=== PATIENT | female | born 1975 | race Caucasian/White ===

== ENCOUNTER 2023-11-12 05:21 | Outpatient (CLI) | payer BC, SELFPAY ==
[2023-11-12 12:25] LABS: Abs Immature Grans 0.02 10^3/uL (0.0-0.06); Absolute Basophil Count 0.07 10^3/uL (0.0-0.2); Absolute Eosinophil Count 0.09 10^3/uL (0.0-0.7); Absolute Lymphocyte Count 2.39 10^3/uL (1.2-3.4); Absolute Neutrophil Count 2.38 10^3/uL (1.2-6.7); Basophils % 1.3; Eosinophils % 1.7; HCT 38.8 % (36.0-46.0); HGB 13.2 g/dL (11.2-15.7); Immature Grans % 0.4; Lymphocytes % 44.7; MCV 97 fL (80-95); MPV 9.4 fL (8.0-11.0); Monocytes % 7.5; Neutrophils % 44.4; Platelet Count 246 10^3/uL (130-400); RDW 12.2 % (11.7-14.6); RDW-SD 43.5 fL; WBC 5.35 10^3/uL (4.4-10.8)
[2023-11-12 12:34] LABS: ESR < 1 mm/hr (0-20)
[2023-11-12 12:40] LABS: ALT 28 U/L (14-59); AST 18 U/L (15-37); Albumin 3.9 g/dL (3.4-5.0); Alkaline Phosphatase 38 U/L (46-116); Anion Gap 6.2 mmol/L (3-11); BUN 11 mg/dL (7-18); Bilirubin, Total 0.5 mg/dL (0.2-1.0); CO2 29.8 mmol/L (21.0-32.0); CREATININE 0.7 mg/dL (0.55-1.02); Calcium 9.6 mg/dL (8.5-10.1); Calculated LDL 110 mg/dL (<100); Chloride 103 mmol/L (98-107); Cholesterol 218 mg/dL (<200); Estimated GFR 107.28 (mL/min/1.73m2); Glucose 97 mg/dL (74-106); HDL Cholesterol 97 mg/dL (40-60); Potassium 3.6 mmol/L (3.5-5.1); Sodium 139 mmol/L (136-145); Total Protein 6.9 g/dL (6.4-8.2); Triglyceride 58 mg/dL (<150)
[2023-11-12 12:43] LABS: C-Reactive Protein < 0.50 mg/dL (<or=0.5)
[2023-11-12 22:24] LABS: Rheumatoid Factor <8.6 IU/mL (<12.0)
[2023-11-13 10:07] LABS: Cyclic Citrullinated Peptide <2.5 U/mL (<5.0)
[2023-11-13 10:31] LABS: Lyme Ab w Rflx to Lyme Confirm Negative (Negative)
[2023-11-13 12:28] LABS: ANA Interpretation Negative (Negative)
[2023-11-16 15:28] LABS: Anaplasma phagocytophilum Negative (Negative); B. miyamotoi PCR Negative (Negative); Babesia divergens/MO-1 Negative (Negative); Babesia duncani Negative (Negative); Babesia microti Negative (Negative); Ehrlichia chaffeensis Negative (Negative); Ehrlichia ewingii/canis Negative (Negative); Ehrlichia muris eauclairensis Negative (Negative)
== END 2023-11-12 05:22 | disposition home or self-care (01) ==
LOC: LBO 05:21
PROVIDERS: Absent Provider Nurse Practitioner; PCP Nurse Practitioner; Visit Provider Nurse Practitioner
DX: M25.512 Pain in left shoulder; W57.XXXA Bitten or stung by nonvenomous insect and other nonvenomous arthropods, initial encounter; E78.5 Hyperlipidemia, unspecified; J45.909 Unspecified asthma, uncomplicated
CPT/HCPCS: 36415; 80053; 80061; 85652; 86200; 87798; 85025; 86038; 86140; 86431; 86618

== ENCOUNTER → 2023-11-30 00:09 | Outpatient (CLI) | payer BC, SELFPAY ==
--- NOTE | 2023-11-30 07:45 | DI.MAMMO_ITS ---
Exam(s) MAMMO SCREENING EXAM: MAMMO SCREENING CLINICAL HISTORY: screening,Z12.39. TECHNIQUE: Bilateral full field digital CC and MLO mammographic images were obtained with 3D tomosyn thesis and utilizing computer aided detection (CAD). COMPARISON: Prior mammograms were not available for review. Apparently in [place]. FINDINGS: Fibroglandular tissue pattern is moderately dense, this somewhat decreasing the sensitivity of the ma mmogram for finding hidden underlying lesions. There is a 2 x 1.7 cm oval nodule in the right breast located approximately 6 cm in from the nipple o n the MLO view. Spot compression views recommended. There are no malignant-appearing microcalcification groups in this region or elsewhere in either [address]. No obvious focal findings in the opposite-left breast. There is no significant architectural distortion nor skin thickening-retraction. IMPRESSION: Dense bilateral fibroglandular tissue. There is a 2 by 1.7 cm oval nodule in the right breast as taran cribed above. Spot compression view and ultrasound recommended. BI-RADS Category 0 - Assessment Incomplete: Need additional imaging evaluation Breast Density - Category C - Heterogeneously dense Breast density Category C or D implies that the patient has dense breast tissue. Dense breast tissue can make it harder to find cancer on a mammogram. Dense breast tissue is also associated with an incr eased risk of breast cancer. This information about the result of the mammogram report was provided to the patient to raise their awareness. Use this report when you speak with the patient about their risks for breast cancer, which includes their family history. At that time, you may recommend additional screening tests (Ultrasoun d or MRI) as these tests may add significant information. A negative radiographic report should not delay biopsy if a dominant or clinically suspicious mass is present. Up to ten percent of cancers are not identified on mammography. A negative report may reinforce clinical impression. Adenosis and dense breasts may obscure an underlying neoplasm. False positive reports average 6 to 10%. Patient will receive a letter notifying them of these results.
== END ==
PROVIDERS: PCP Nurse Practitioner; Visit Provider Nurse Practitioner
DX: Z12.31 Encounter for screening mammogram for malignant neoplasm of breast (principal); E78.5 Hyperlipidemia, unspecified
CPT/HCPCS: 77063; 77067

== ENCOUNTER → 2024-01-11 00:41 | Outpatient (CLI) | payer BC, SELFPAY ==
--- NOTE | 2024-01-11 | DI.MAMMO_ITS ---
Exam(s) MG MAMMO SCREEN CALL BACK UNI US BREAST LT COMPLETE US BREAST RT COMPLETE EXAM: MG MAMMO SCREEN CALL BACK UNI-RIGHT AND COMPLETE BILATERAL BREAST ULTRASOUND CLINICAL HISTORY: F/U ABNL MAMMO, R92.8,NODULE RT BREAST. TECHNIQUE: Unilateral right breast spot mammographic images obtained with 3D tomosynthesisand utiliz ing computer aided detection (CAD). . Complete BILATERAL breast Ultrasound was also performed, including all 4 quadrants, the retroareolar region, and the bilateral axillary regions.. COMPARISON: Prior mammograms were reviewed. This additional imaging was performed due to findings described on the recent screening mammogram of 11/30/2023. FINDINGS: DIAGNOSTIC MAMMOGRAM: Additional spot compression view of the right breast performed todaydoes not dissipate this nodule. W e therefore proceeded with breast ultrasound.This was converted to a bilateral complete breast ultras ound given the findings in the right breast on today's ultrasound. COMPLETE BILATERAL BREAST ULTRASOUND: RIGHT BREAST ULTRASOUND: There are multiple benign microcysts in the right breast located at 1 o'clock, 3 o'clock, 4 o'clock, 5 o'clock, 10 o'clock and 11 o'clock positions. In addition, there is a dominant non septated benign cyst at the 8 o'clock position which measures 2 x 1.3 cm. At the 11 o'clock position there are 2 solid findings. First leak, there is a lobulated well-defined wider than taller 2.1 by 0.9 cm nodule with increased through transmission. This is either a hemorrha gic cyst or fibroadenoma. Less likely malignancy. Also at the 11 o'clock position is a smaller solid nodule also is lobulated measuring 7 x 4 mm, locat ed approximately 3 cm from the nipple. Scanning of the right axilla is negative for significant adenopathy. LEFT BREAST ULTRASOUND: There is a lobulated the 8 x 4 millimeter probable hemorrhagic microcysts at the 3 o'clock position. At 5 o'clock position there is a 4 x 3 mm microcyst and at 6 o'clock position there is a 5 x 3 millim eter benign microcyst. At 10 o'clock position there is an 11 x 5 millimeter simple cyst. There do not appear to be solid nodules in the left breast. Scanning of the left axilla is negative for significant adenopathy. IMPRESSION: 1. There are multiple bilateral cysts and microcysts. The largest cyst in the right breast most prob ably corresponds to the finding on the mammogram. 2. At the 11 o'clock position of the right breast there are 2 solid appearing lobulated nodules measu ring 21 x 9 mm and 7 x 4 mm. These exhibit neutral and increased through transmission and may represe nt fibroadenomas. Nevertheless should undergo ultrasound-guided core biopsy. Findings and recommendation for biopsy discussed by myself with the patient today. Called Dr. Karen Ruiz at Dr. Phillips's office following completion of this study Sunday01/11/2024 5 p.m. BI-RADS Category 4 - Suspicious Abnormality: Biopsy should be considered Breast Density - Category C - Heterogeneously dense Breast density Category C or D implies that the patient has dense breast tissue. Dense breast tissue can make it harder to find cancer on a mammogram. Dense breast tissue is also associated with an incr eased risk of breast cancer. This information about the result of the mammogram report was provided to the patient to raise their awareness. Use this report when you speak with the patient about their risks for breast cancer, which includes their family history. At that time, you may recommend additional screening tests (Ultrasoun d or MRI) as these tests may add significant information. A negative radiographic report should not delay biopsy if a dominant or clinically suspicious mass is present. Up to ten percent of cancers are not identified on mammography. A negative report may reinforce clinical impression. Adenosis and dense breasts may obscure an underlying neoplasm. False positive reports average 6 to 10%. Patient will receive a letter notifying them of these results.
== END ==
PROVIDERS: PCP Nurse Practitioner; Visit Provider Nurse Practitioner
DX: Z12.31 Encounter for screening mammogram for malignant neoplasm of breast (principal); R92.8 Other abnormal and inconclusive findings on diagnostic imaging of breast; N63.11 Unspecified lump in the right breast, upper outer quadrant; N60.11 Diffuse cystic mastopathy of right breast; N60.12 Diffuse cystic mastopathy of left breast
CPT/HCPCS: 76642; 77063; 77067

== ENCOUNTER 2024-09-29 01:46 | Outpatient (CLI) | payer BC, SELFPAY ==
--- OUTSIDE RECORDS SUMMARY | 2024-08-08 01:26 | XMS_ITS | Referral Summary ---
Author Organization [facility] Address [address] [place] [address] Care Team Providers Care Remote Sensing Program Manager Name Role Phone None, Provider Primary Care Provider Unavailabl e Social History Tobacco Use Types Packs/Day Years Used Date Smoking Tobacco: Never Assessed Sex and Gender Information Value Date Recorded Sex Assigned at Not on file Gender Identity Female 01/11/2023 13:30 EDT Sexual Orientation Not on file Plan of Treatment Not on file Care Teams Remote Sensing Program Manager Relationship Specialty Start Date End Date None, Provider PCP - General 01/11/23
--- OUTSIDE RECORDS SUMMARY | 2024-08-08 01:26 | XMS_ITS | Encounter Summary ---
Author Organization [facility] [place] [address] Care Team Providers Care Highway Engineer Name Role Phone Unknown Primary Care Provider Unavailabl e Encounter Details Date Type Department Care Team (Late st Contact Info) Description 01/18/2024 Notes Only [place]ology [place] [address] Sylvie Lisa Social History Tobacco Use Types Packs/Day Years Used Date Smoking Tobacco: Never Assessed Sex and Gender Information Value Date Recorded Sex Assigned at Not on file Gender Identity Not on file Sexual Orientation Not on file documented as of this encounter Progress Notes * Sylvie Lisa - 01/18/2024 3:23 PM EDT Hamida Ibarra 1975 [id number] Referring provider: Brenda Phillips Date of Referral: 01.18.2024 Please review outside breast imaging dated: 11.30.2023 Reason for exam and clinical history:Rt breast oval nodule Category:0 ( Rt US done 01.11.2024, CAT 4) Questions to be answered: ? More imaging, BX Sending Institution: [facility] Patient would like treatment at: Call pt at: documented in this encounter Plan of Treatment Upcoming Encounters Date Type Department Care Team (Late st Contact Info) Description 08/11/2024 2:00 PM EST [place] [address] Susan Galloway MD [facility] [place] [address] documented as of this encounter Visit Diagnoses Not on filedocumented in this encounter Care Teams Highway Engineer Relationship Specialty Start Date End Date Unknown None PCP - General 01/18/24 02/07/24 documented as of this encounter
--- OUTSIDE RECORDS SUMMARY | 2024-08-08 01:26 | XMS_ITS | Encounter Summary ---
Author Organization [facility] Address [facility] [place] [address] Care Team Providers Care Healthcare Recruiter Name Role Phone Unknown Primary Care Provider Unavailabl e Encounter Details Date Type Department Care Team (Latest Contact Info) Description 02/01/2024 Travel Social History Tobacco Use Types Packs/Day Years Used Date Smoking Tobacco: Never Assessed Sex and Gender Information Value Date Recorded Sex Assigned at Not on file Gender Identity Not on file Sexual Orientation Not on file documented as of this encounter Plan of Treatment Upcoming Encounters Date Type Department Care Team (Late st Contact Info) Description 08/11/2024 2:00 PM EST [place] [address] Susan Galloway MD [facility] [place] [address] documented as of this encounter Visit Diagnoses Not on filedocumented in this encounter Care Teams Healthcare Recruiter Relationship Specialty Start Date End Date Unknown None PCP - General 01/18/24 02/07/24 documented as of this encounter
--- OUTSIDE RECORDS SUMMARY | 2024-08-08 01:26 | XMS_ITS | Encounter Summary ---
Author Organization [facility] Address [facility] [place] [address] Care Team Providers Care Furnace Mason Name Role Phone Alan Brenda Lester SWANN Primary Care Provider [phone] Encounter Details Date Type Department Care Team (Latest Contact Info) Description 02/08/2024 2:39 PM EDT - 02/08/2024 11:59 PM EDT Hospital Encounter [place] [address] Susan Galloway MD [facility] [place] [address] Abnormal finding on breast imaging Discharge Disposition: Home Social History Tobacco Use Types Packs/Day Years Used Date Smoking Tobacco: Never Assessed Sex and Gender Information Value Date Recorded Sex Assigned at Not on file Gender Identity Not on file Sexual Orientation Not on file documented as of this encounter Plan of Treatment Upcoming Encounters Date Type Department Care Team (Late st Contact Info) Description 08/11/2024 2:00 PM EST Appointment [place] [id number] Susan Galloway MD [facility] [place] [address] documented as of this encounter Procedures Procedure Name Priority Date/Time Associated Diagnosis Comments MAMMO DIAGNOSTIC CAD AND STEVEN LEFT Routine 02/08/2024 3:26 PM EDT Abnormal finding on breast imaging documented in this encounter Results * Mammo Diagnostic Cad and Steven Left (02/08/2024 3:26 PM EDT) WORKSTATION ID [id number] 1 RAD Anatomical Region Laterality Modality Breast Left Mammography Impressions 02/08/2024 5:19 PM EDT 1. ??No reproducible solid mass is seen on today's ultrasound, therefore no biopsy was performed. The larger lesion at 11 o'clock, 1 cm from the nipple appears to represent a debris-filled cyst rather than solid lesion and short interval follow-up is recommended to establish stability. 2. ??The smaller mass at 11 o'clock 3 cm from the nipple demonstrated on prior ultrasound is not seen today. 3. ??Benign parenchymal asymmetry in the left breast without suspicious features on additional imaging with known underlying multiple masses throughout the left breast. MANAGEMENT: 1. ??6 month follow-up right breast mammogram and ultrasound to establish stability of the 2 cm, presumed debris-filled cyst versus fibroadenoma at 11 o'clock, 1 cm from the nipple and confirm continued absence of the second questioned lesion at 11 o'clock, 3 cm from the nipple. Patient may schedule this follow-up at her local hospital or [facility]. 2. ??Clinical follow-up of any persistent, suspicious palpable abnormalities. I discussed a strategy for self breast examination with the patient, given multiple, bilateral palpable lumps and the difficulties inherent in this type of examination. FINAL ASSESSMENT: BI-RADS Category 3: Probably Benign Finding. Short interval follow-up Thank you for letting us participate in the care of this patient. ??If you are a health care provider and have any questions regarding this report, please contact the number below. ??For patients who have questions please contact the health complex care nurse that requested your imaging first. ? Narrative 02/08/2024 5:19 PM EDT EXAMINATION: MAMMO DIAGNOSTIC CAD AND STEVEN LEFT, US BREAST LIMITED RIGHT CLINICAL HISTORY: Patient presents for additional imaging evaluation and possible right breast biopsy based on outside imaging. TECHNIQUE AND VIEWS OBTAINED: CC and MLO views were obtained of the LEFT breast. 2D and 3D tomosynthesis images were obtained. Computer aided detection was used. COMPARISON: Prior images BREAST DENSITY: The breast tissue is heterogeneously dense, which may obscure small masses. FINDINGS: Additional spot compression views of the left breast were performed. The focal asymmetry in the posterior central left breast and inferior on the MLO view resolves with spot compression. Underlying breast masses are present. No persistent suspicious features. ULTRASOUND: Targeted right breast ultrasound was performed with comparison to breast ultrasound from 01/11/2024 multiple large cysts are documented in the upper outer right breast, most notably at 11 o'clock 1 cm from the nipple, there is a 2.1 cm cyst with internal debris. No solid components are seen. No internal blood flow is documented. There are multiple small adjacent cysts. The small, solid mass previously documented at 11 o'clock, 3 cm from the nipple cannot be reproduced on today's ultrasound. I performed extensive scanning myself. No suspicious solid masses are seen in the upper outer right breast. Numerous cysts are present. Susan Galloway MD IMG MAMMO ORDERABLES documented in this encounter Visit Diagnoses Diagnosis Abnormal finding on breast imaging Other (abnormal) findings on radiological examination of breast documented in this encounter Care Teams Furnace Mason Relationship Specialty Start Date End Date Brenda Phillips, MARINE PAINTER [address] [place] [address] PCP - General Internal Medicine 02/08/24 documented as of this encounter
--- OUTSIDE RECORDS SUMMARY | 2024-08-08 01:26 | XMS_ITS | Encounter Summary ---
Author Organization [facility] [place] [address] Care Team Providers Care Junior Business Analyst Name Role Phone Brenda Phillips APRN Primary Care Provider [phone] Encounter Details Date Type Department Care Team (Latest Contact Info) Description 02/08/2024 Travel Social History Tobacco Use Types Packs/Day [...] 08/11/2024 2:00 PM EST [place] [address] Susan Galloway MD [facility] [place] [address] documented as of this encounter Visit Diagnoses Not on filedocumented in this encounter Care Teams Junior Business Analyst Relationship Specialty Start Date End Date Brenda Phillips APRN [address] [place] [address] PCP - General Internal Medicine 02/08/24 documented as of this encounter
--- OUTSIDE RECORDS SUMMARY | 2024-08-08 01:26 | XMS_ITS | Encounter Summary ---
Author Organization [facility] [address] Care Team Providers Care Playroom Attendant Name Role Phone Unavailable Primary Care Provider Unavailabl e Encounter Details Date Type Department Care Team (Late st Contact Info) Description 01/11/2024 Ancillary Procedure Radiology Library at [facility] [place] [address] Brenda Phillips, AUXILIARY EQUIPMENT OPERATOR [address] [place] [address] Social History Tobacco Use Types Packs/Day Years Used Date Smoking Tobacco: Never Assessed Sex and Gender Information Value Date Recorded Sex Assigned at Not on file Gender Identity Not on file Sexual Orientation Not on file documented as of this encounter Plan of Treatment Upcoming Encounters Date Type Department Care Team (Late st Contact Info) Description 08/11/2024 2:00 PM EST [place] [address] Susan Galloway MD [facility] [place] [address] documented as of this encounter Procedures Procedure Name Priority Date/Time Associated Diagnosis Comments FILM LIBRARY STORAGE ONLY MAMMO Routine 01/11/2024 12:00 AM EDT documented in this encounter Results * Film Library- Storage Only Mammo (01/11/2024 12:00 AM EDT) Narrative [facility] - 01/17/2024 8:05 AM EDT This exam is auto-finalizing. It's purpose is for storage only. Brenda Phillips APRN [facility] FILM LIBRARY ORD ERABLES Performing Organization Address City/State/[facility] Co de Phone Number [place], [place] documented in this encounter Visit Diagnoses Not on filedocumented in this encounter
--- OUTSIDE RECORDS SUMMARY | 2024-08-08 01:26 | XMS_ITS | Encounter Summary ---
[place] [address] Care Team Providers Care Car Escort Name Role Phone Unknown Primary Care Provider Unavailabl e Reason for Referral * Consultation (Urgent) - Closed Specialty Diagnoses / Procedures Referred By Harleen t Referred To Contact Breast Clinic / Breast Center Diagnoses Other abnormal and inconclusive findings on diagnostic imaging of breast Brenda Phillips APRN [address] [place] [address] [facility] [address] [place] [address] Referral ID Status Reason Start Date Expiration Date V isits Requested Visits Authorized [id number] Closed Consult, Test & Treat PCP Updated and/or Approved 01/15/2024 07/15/2024 6 6 Encounter Details Date Type Department Care Team (Latest Contact Info) Description 01/18/2024 Transcribe Orders eDH Incoming Referrals [phone] Brenda Phillips APRN [address] [place], [place] [id number] Other abnormal and inconclusive findings on diagnostic imaging of breast Social History Tobacco Use Types Packs/Day Years Used Date Smoking Tobacco: Never Assessed Sex and Gender Information Value Date Recorded Sex Assigned at Not on file Gender Identity Not on file Sexual Orientation Not on file documented as of this encounter Plan of Treatment Upcoming Encounters Date Type Department Care Team (Late st Contact Info) Description 08/11/2024 2:00 PM EST [place] [address] Susan Galloway MD [facility] [place] [address] Scheduled Referrals Name Type Priority Associated Diagnoses Orde r Schedule Referral to Comprehensive Breast Program Outpatient Referral Urgent Other abnormal and inconclusive findings on diagnostic imaging of breast Ordered: 01/18/2024 documented as of this encounter Visit Diagnoses Diagnosis Other abnormal and inconclusive findings on diagnostic imaging of breast documented in this encounter Care Teams Car Escort Relationship Specialty Start Date End Date Unknown None PCP - General 01/18/24 02/07/24 documented as of this encounter
--- OUTSIDE RECORDS SUMMARY | 2024-08-08 01:26 | XMS_ITS | Encounter Summary ---
Author Organization [facility] Address [address] [place] [address] Care Team Providers Care Development Technologist Name Role Phone None, Provider Primary Care Provider Unavailabl e Encounter Details Date Type Department Care Team (Late st Contact Info) Description 11/12/2023 Lab Requisition [facility] Pathology & Laboratory Medicine - [facility] [address], [place] [address] Outr Resulting Lab, Provider Social History Tobacco Use Types Packs/Day Years Used Date Smoking Tobacco: Never Assessed Sex and Gender Information Value Date Recorded Sex Assigned at Not on file Gender Identity Female 01/11/2023 13:30 EDT Sexual Orientation Not on file documented as of this encounter Plan of Treatment Not on file documented as of this encounter Procedures Procedure Name Priority Date/Time Associated Diagnosis Comments CCP ANTIBODIES Routine 11/12/2023 12:08 EST LYME AB Routine 11/12/2023 12:08 EST RHEUMATOID FACTOR Routine 11/12/2023 12: 08 EST ANTI NUCLEAR AB (KARSON), IFA Routine 11/12/2023 12:08 EST documented in this encounter Results * LYME AB (11/12/2023 12:08 EST) Lyme Ab Negative Negative 11/13/2023 10:26 EST [facility] Blood VENOUS BLOOD / Unknown 11/12/2023 12:08 EST 11/12/2023 21:49 EST Provider Outr Resulting Lab IMMUNOLOGY A ND SEROLOGY ORDERABLES Performing Organization Address [facility] Co de Phone Number [facility] [address] [place] [address] * RHEUMATOID FACTOR (11/12/2023 12:08 EST) Rheumatoid Factor <8.6 <12.0 IU/mL 11/12/2023 22:20 EST [facility] Blood VENOUS BLOOD / Unknown 11/12/2023 12:08 EST 11/12/2023 21:49 EST Provider Outr Resulting Lab CHEMISTRY & BLOOD GAS ORDERABLES Performing Organization Address [facility] de Phone Number [facility] [address] [place] [address] * ANTI NUCLEAR AB (KARSON), IFA (11/12/2023 12:08 EST) KARSON Interpretation Negative Negative 2023 12:24 EST [facility] Comment:No titer performed, KARSON Screen is negative. Blood VENOUS BLOOD / Unknown 11/12/2023 12:08 EST 11/12/2023 21:49 EST Narrative [facility] - 11/13/2023 12:24 EST Results were obtained with the INOVA NOVA Lite HEp-2 KARSON Kit by indirect immunofluorescence. Provider Outr Resulting Lab IMMUNOLOGY A ND SEROLOGY ORDERABLES Performing Organization Address [facility] Co de Phone Number [facility] [address] [place] [address] * CCP ANTIBODIES (11/12/2023 12:08 EST) CCP Antibodies <2.5 <5.0 U/mL 11/13/2023 10:02 EST [facility] Blood VENOUS BLOOD / Unknown 11/12/2023 12:08 EST 11/12/2023 21:49 EST Provider Outr Resulting Lab IMMUNOLOGY A ND SEROLOGY ORDERABLES Performing Organization Address [facility]/State/ZIP Co de Phone Number [facility] [address] [place] [address] documented in this encounter Visit Diagnoses Not on filedocumented in this encounter Care Teams Development Technologist Relationship Specialty Start Date End Date None, Provider PCP - General 01/11/23 documented as of this encounter
--- OUTSIDE RECORDS SUMMARY | 2024-08-08 01:26 | XMS_ITS | Encounter Summary ---
Author Organization [facility] [place] [address] Care Team Providers Care Hat Sizer Name Role Phone Unknown Primary Care Provider Unavailabl e Reason for Visit * (Routine) - Pending Review Specialty Diagnoses / Procedures Referred By Harleen hernandez Referred To Contact Radiology Diagnoses Breast nodule Procedures Request for 2nd read Mammo Brenda Phillips, EXTRUDER OPERATOR HELPER [address] [place] [address] Referral ID Status Reason Start Date Expiration Date V isits Requested Visits Authorized [id number] Pending Review 01/20/2024 01/19/2025 1 1 Encounter Details Date Type Department Care Team (Late st Contact Info) Description 01/20/2024 12:40 AM EDT Ancillary Procedure Radiology Library at [facility] [place] [address] Brenda Phillips, EXTRUDER OPERATOR HELPER [address] [place] [address] Breast nodule Social History Tobacco Use Types Packs/Day Years Used Date Smoking Tobacco: Never Assessed Sex and Gender Information Value Date Recorded Sex Assigned at Not on file Gender Identity Not on file Sexual Orientation Not on file documented as of this encounter Plan of Treatment Upcoming Encounters Date Type Department Care Team (Late st Contact Info) Description 08/11/2024 2:00 PM EST Appointment Mammography at [facility] [place] [phone] Susan Galloway MD [facility] [place] [address] documented as of this encounter Procedures Procedure Name Priority Date/Time Associated Diagnosis Comments REQUEST FOR 2ND READ MAMMO Routine 01/20/2024 12:39 AM EDT Breast nodule documented in this encounter Results * Request for 2nd read Mammo (01/20/2024 12:39 AM EDT) Anatomical Region Laterality Modality SO Narrative 01/21/2024 10:29 AM EDT INTERPRETATION OF OUTSIDE BREAST IMAGING I have been asked to consult on this patient by Dr. Phillips because he/she believes a review of this study may change or alter the care of this patient. STUDIES FROM: [facility] CLINICAL HISTORY: ? More imaging, BX; Sending Institution [facility]; Date of exam [id number]; I believe a reinterpretation of this exam may alter care of Patient. Yes; Rt breast oval nodule, Cat 0 (Rt US done 01.11.24, CAT 4). ?? DATES and TYPE OF EXAM: Screening mammography from 11/30/2023 with additional views of the RIGHT breast from 01/11/2024 and ultrasound of the RIGHT breast in the same date VIEWS: Bilateral CC, bilateral MLO, RIGHT spot CC, RIGHT spot MLO COMPARISONS: None BREAST DENSITY: The breasts are heterogeneously dense, which may obscure small masses FINDINGS: LEFT breast: There is a 1.1 cm focal asymmetry in the lower slightly inner quadrant of the LEFT breast, 7.5 cm from the nipple which requires additional cone compression views. There are limited images of the whole breast ultrasound of the LEFT should that showed multiple simple cysts, cannot see an ultrasound correlate to this area RIGHT breast: There is a 2 cm oval well-circumscribed oval mass in the upper RIGHT breast approximately 5.5 cm from the nipple which does not compress with additional compression images. Ultrasound of the entire RIGHT breast shows multiple simple cysts, additionally at 11:00 1 cm from the nipple there is a 2 cm oval hypoechoic mass that likely is a complicated simple cyst, with no internal flow, I feel this correlates to the abnormality seen mammographically. At 11:00 3 cm from the nipple there is a 0.7 cm irregular hypoechoic mass DIAGNOSTIC SUMMARY: LEFT breast: Focal asymmetry lower inner LEFT breast requires additional views RIGHT breast: Likely complicated cyst at 11:00 1 cm from the nipple but indeterminant irregular solid mass at 11:00 3 cm from the nipple. Repeat ultrasound of both these lesions with probable ultrasound-guided biopsy of the solid mass INTERPRETATION: BI-RADS 0. Incomplete: Need additional imaging evaluation MANAGEMENT: LEFT breast: Cone compression views of the irregular focal asymmetry in the lower inner LEFT breast plus ultrasound of this does not efface RIGHT breast: Repeat RIGHT breast ultrasound and ultrasound-guided biopsy We'll perform the additional diagnostic imaging on the day of the scheduled biopsy Please note: The interpretation of the [facility] Breast Imaging Radiologist subspecialist may differ from the original radiologists interpretation. This is usually not due to a deficiency of the original interpreting radiologist, rather due to the greater skill level afforded by sub-specialization in the field and/or reasonable variations in interpretations. If you have a concern regarding the D-H interpretation you may contact the [facility] Breast Six Color Press Operator Office at . Thank you for letting us participate in the care of this patient. ??If you are a health care provider and have any questions regarding this report, please contact the number below. ??For patients who have questions please contact the health child care cook that requested your imaging first. ? Electronically signed by: Jerri Klein MD, [facility] ([phone]), at 01/21/2024 10:29 AM Procedure Note Jerri Klein MD - 01/21/2024 INTERPRETATION OF OUTSIDE BREAST IMAGING I have been asked to consult on this patient by Dr. Phillips becausehe/she believes a review of this study may change or alter the care of thispatient. STUDIES FROM: [facility] CLINICAL HISTORY: ? More imaging, BX; Sending Institution [facility]; Date of exam [id number]; I believe a reinterpretation ofthis exam may alter care of Patient. Yes; Rt breast oval nodule, Cat 0 (Rt USdone 4.5.24, CAT 4). DATES and TYPE OF EXAM: Screening mammography from 11/30/2023 withadditional views of the RIGHT breast from 01/11/2024 and ultrasound of the RIGHT breastin the same date VIEWS: Bilateral CC, bilateral MLO, RIGHT spot CC, RIGHT spot MLO COMPARISONS: None BREAST DENSITY: The breasts are heterogeneously dense, which may obscure small masses FINDINGS: LEFT breast: There is a 1.1 cm focal asymmetry in the lower slightlyinner quadrant of the LEFT breast, 7.5 cm from the nipple which requiresadditional cone compression views. There are limited images of the whole breastultrasound of the LEFT should that showed multiple simple cysts, cannot see anultrasound correlate to this area RIGHT breast: There is a 2 cm oval well-circumscribed oval mass in theupper RIGHT breast approximately 5.5 cm from the nipple which does not compresswith additional compression images. Ultrasound of the entire RIGHT breastshows multiple simple cysts, additionally at 11:00 1 cm from the nipple there bill 2 cm oval hypoechoic mass that likely is a complicated simple cyst, withno internal flow, I feel this correlates to the abnormality seenmammographically. At 11:00 3 cm from the nipple there is a 0.7 cm irregular hypoechoicmass DIAGNOSTIC SUMMARY: LEFT breast: Focal asymmetry lower inner LEFT breast requires additionalviews RIGHT breast: Likely complicated cyst at 11:00 1 cm from the nipple but indeterminant irregular solid mass at 11:00 3 cm from the nipple. Repeat ultrasound of both these lesions with probable ultrasound-guided biopsy ofthe solid mass INTERPRETATION: BI-RADS 0. Incomplete: Need additional imaging evaluation MANAGEMENT: LEFT breast: Cone compression views of the irregular focal asymmetry inthe lower inner LEFT breast plus ultrasound of this does not efface RIGHT breast: Repeat RIGHT breast ultrasound and ultrasound-guidedbiopsy We'll perform the additional diagnostic imaging on the day of thescheduled biopsy Please note: The interpretation of the [facility] BreastImaging Radiologist subspecialist may differ from the original radiologists interpretation. This is usually not due to a deficiency of the original interpreting radiologist, rather due to the greater skill level affordedby sub-specialization in the field and/or reasonable variations ininterpretations. If you have a concern regarding the D-H interpretation you may contact the[facility] Breast Six Color Press Operator Office at . Thank you for letting us participate in the care of this patient. If youare a health care provider and have any questions regarding this report,please contact the number below. For patients who have questions please contactthe health child care cook that requested your imaging first. Brenda Phillips APRN IMG OUTSIDE INTERPRE TATION ORDERABLES documented in this encounter Visit Diagnoses Diagnosis Breast nodule Other (abnormal) findings on radiological examination of breast documented in this encounter Care Teams Hat Sizer Relationship Specialty Start Date End Date Unknown None PCP - General 01/18/24 02/07/24 documented as of this encounter
--- OUTSIDE RECORDS SUMMARY | 2024-08-08 01:26 | XMS_ITS | Clinical Summary ---
Author Organization [facility] Address [address] [place] [address] Care Team Providers Care Territory Sales Representative Name Role Phone None, Provider Primary Care Provider Unavailabl e Social History Tobacco Use Types Packs/Day Years Used Date Smoking Tobacco: Never Assessed Sex and Gender Information Value Date Recorded Sex Assigned at Not on file Gender Identity Female 01/11/2023 13:30 EDT Sexual Orientation Not on file Plan of Treatment Health Maintenance Due Date Last Done Comments Hepatitis C Screen 1976 Hepatitis B Vaccine (1 of 3 - 19+ 3-dose series) 05/06 COVID-19 Vaccine (2023- season) 2024 Care Teams Territory Sales Representative Relationship Specialty Start Date End Date None, Provider PCP - General 01/11/23
--- OUTSIDE RECORDS SUMMARY | 2024-08-08 01:26 | XMS_ITS | Encounter Summary ---
Author Organization [facility] Address [address] [place] [address] Care Team Providers Care Bull Wheel Worker Name Role Phone None, Provider Primary Care Provider Unavailabl e Reason for Visit * Reason Onset Date Comments Appointment Related 01/08/2024 Encounter Details Date Type Department Care Team (Late st Contact Info) Description 01/08/2024 Telephone [facility] [address], [place] [id number] Mahsa Estrada, BREA CN [address] [facility] [address] [place] [address] Appointment Related Social History Tobacco Use Types Packs/Day Years Used Date Smoking Tobacco: Never Assessed Sex and Gender Information Value Date Recorded Sex Assigned at Not on file Gender Identity Female 01/11/2023 13:30 EDT Sexual Orientation Not on file documented as of this encounter Miscellaneous Notes * Telephone Encounter - Monica Munoz - 01/08/2024 1002 EDT LMOM. If still interested in becoming FITTER PLACER at our office pls. Call and make appointment, Possible dates: MF on 01/16, EV 01/23. documented in this encounter Plan of Treatment Not on file documented as of this encounter Visit Diagnoses Not on filedocumented in this encounter Care Teams Bull Wheel Worker Relationship Specialty Start Date End Date None, Provider PCP - General 01/11/23 documented as of this encounter
--- OUTSIDE RECORDS SUMMARY | 2024-08-08 01:26 | XMS_ITS | Encounter Summary ---
Author Organization [facility] Address [facility] [place] [address] Care Team Providers Care Cad Librarian Name Role Phone Unavailable Primary Care Provider Unavailabl e Encounter Details Date Type Department Care Team (Late st Contact Info) Description 11/30/2023 Ancillary Procedure Radiology Library [place] [address] Brenda Phillips, NEGATIVE TURNER APPRENTICE [address] [place] [address] Social History Tobacco Use Types Packs/Day Years Used Date Smoking Tobacco: Never Assessed Sex and Gender Information Value Date Recorded Sex Assigned at Not on file Gender Identity Not on file Sexual Orientation Not on file documented as of this encounter Plan of Treatment Upcoming Encounters Date Type Department Care Team (Late st Contact Info) Description 08/11/2024 2:00 PM EST [place] [address] Susan Galloway MD [facility] [place] [place] [address] documented as of this encounter Procedures Procedure Name Priority Date/Time Associated Diagnosis Comments FILM LIBRARY STORAGE ONLY MAMMO Routine 11/30/2023 12:00 AM EST documented in this encounter Results * Film Library- Storage Only Mammo (11/30/2023 12:00 AM EST) Narrative [facility] - 01/17/2024 8:05 AM EDT This exam is auto-finalizing. It's purpose is for storage only. Brenda Phillips APRN [facility] FILM LIBRARY ORD ERABLES Performing Organization Address City/State/[facility] [[email or web address]] Co de Phone Number [place], [place] documented in this encounter Visit Diagnoses Not on filedocumented in this encounter
--- OUTSIDE RECORDS SUMMARY | 2024-08-08 01:26 | XMS_ITS | Encounter Summary ---
Author Organization [facility] Address [facility] [place] [address] Care Team Providers Care Pain Management Physician Name Role Phone Hui Phillipsyce Lester SWANN Primary Care Provider [phone] Encounter Details Date Type Department Care Team (Latest Contact Info) Description 02/08/2024 1:49 PM EDT - 02/08/2024 2:38 PM EDT Hospital [place] [phone] Jerri Klein MD [facility] [place] [address] Abnormal finding on breast imaging Discharge Disposition: [...] 08/11/2024 2:00 PM EST [place] [phone] Susan Galloway MD [facility] [place] [address] documented as of this encounter Procedures Procedure Name Priority Date/Time Associated Diagnosis Comments MAMMO BREAST US LIMITED RIGHT Routine 02/08/2024 3:05 PM EDT Abnormal finding on breast imaging documented in this encounter Results * US Breast Limited Right (02/08/2024 3:05 PM EDT) WORKSTATION ID [id number] 1 RAD Anatomical Region Laterality Modality Breast Right Mammography Impressions 02/08/2024 5:19 PM EDT 1. [...] this follow-up at her local hospital or [facility]. 2. ??Clinical follow-up of any persistent, suspicious [...] who have questions please contact the health animal care assistant that requested your imaging first. ? Narrative [...] outer right breast. Numerous cysts are present. Jerri Klein MD IMG MAMMO ORDERABLES documented in this encounter Visit Diagnoses Diagnosis Abnormal finding on breast imaging Other (abnormal) findings on radiological examination of breast documented in this encounter Care Teams Pain Management Physician Relationship Specialty Start Date End Date Brenda Phillips APRN [address] [place] [address] PCP - General Internal Medicine 02/08/24 documented as of this encounter
--- OUTSIDE RECORDS SUMMARY | 2024-08-08 01:26 | XMS_ITS | Encounter Summary ---
Author Organization [facility] [place] [address] Care Team Providers Care Radiologic Technologist Name Role Phone Unavailable Primary Care Provider Unavailabl e Encounter Details Date Type Department Care Team (Late st Contact Info) Description 01/11/2024 12:05 AM EDT Ancillary Procedure Radiology Library at [facility] [place] [address] Brenda Phillips, EDITOR TRADE JOURNAL [address] [place] [address] Social History Tobacco Use Types Packs/Day Years Used Date Smoking Tobacco: Never Assessed Sex and Gender Information Value Date Recorded Sex Assigned at Not on file Gender Identity Not on file Sexual Orientation Not on file documented as of this encounter Plan of Treatment Upcoming Encounters Date Type Department Care Team (Late st Contact Info) Description 08/11/2024 2:00 PM EST Appointment [place] [address] Susan Galloway MD [facility] [place] [address] documented as of this encounter Procedures Procedure Name Priority Date/Time Associated Diagnosis Comments FILM LIBRARY-STORAGE ONLY US BREAST Routine 01/11/2024 12:05 AM EDT documented in this encounter Results * Film Library Storage Only US Breast (01/11/2024 12:05 AM EDT) Narrative [facility] - 01/17/2024 8:05 AM EDT This exam is auto-finalizing. It's purpose is for storage only. Brenda Phillips APRN IMG FILM LIBRARY ORD ERABLES [place], [place] documented in this encounter Visit Diagnoses Not on filedocumented in this encounter
--- OUTSIDE RECORDS SUMMARY | 2024-08-08 01:26 | XMS_ITS | Clinical Summary ---
Author Organization [facility] Address [facility] [place] [address] Care Team Providers Care Icer Machine Name Role Phone Brenda Phillips APRN Primary Care Provider [phone] Social History Tobacco Use Types Packs/Day Years Used Date Smoking Tobacco: Never Assessed Sex and Gender Information Value Date Recorded Sex Assigned at Not on file Gender Identity Not on file Sexual Orientation Not on file Plan of Treatment Upcoming Encounters Date Type Department Care Team (Late st Contact Info) Description 08/11/2024 2:00 PM EST [place] [address] Susan Galloway MD [facility] [place] [address] Health Maintenance Due Date Last Done Comments CT Colonography 1976 Colonoscopy 1976 Colorectal Cancer Screening 1976 FIT DNA 1976 FIT 1976 Sigmoidoscopy (10 year) with FIT yearly 1976 Sigmoidoscopy 1976 HIV screen 1994 Hepatitis C Screening 1994 Hepatitis B vaccine (0-59 yrs) (1) 1995 Tetanus/Diphtheria/Pertussis Vaccines (1 - Tdap) 05/06 HPV test 2006 PAP Smear 2006 Breast Cancer Share Decision Needed 2016 Breast Cancer screening 2016 Covid-19 Vaccine ( - 24 season) 2024 Influenza (Flu) vaccine (1 o f 1 - Influenza standard series) 06/08/2024 Care Teams Icer Machine Relationship Specialty Start Date End Date Brenda Phillips, SHREE [address] [place], [place] [id number] PCP - General Internal Medicine 02/08/24
--- NOTE | 2024-09-29 07:00 | DI.US_ITS ---
Exam(s) MG MAMMO DIAGNOSTIC UNI US BREAST RT COMPLETE EXAM: MG MAMMO DIAGNOSTIC UNI CLINICAL HISTORY: abnormality of rt breast on screening mammo, R92.8. COMPARISON: MG MG MAMMO SCREENING from 11/30/2023 US US BREAST RT COMPLETE from 01/11/2024 US US BREAST LT COMPLETE from 01/11/2024 MG MG MAMMO SCREEN CALL BACK UNI from 01/11/2024 MG ComboHD Unilateral Left from 02/08/2024 US US BREAST LIMITED RIGHT from 02/08/2024 US US BREAST RT COMPLETE from 09/29/2024 TECHNIQUE: Craniocaudal and mediolateral oblique Full Field Digital Mammography views of right breas t with Computer Aided Diagnosis followed by Tomosynthesis and right breast ultrasound. FINDINGS: Mammography/Tomosynthesis: Masses: Vague area low-density nodularity noted in both lateral in medial portions of breast. Architectural Distortion: None seen. Microcalcifications: No suspicious pleomorphic-type are seen. Skin Thickening/Nipple Retraction: None. Right breast US: Echotexture: Normal appearance of the glandular tissue. Shadowing: No suspicious foci. Cyst: Arm 11 o'clock position of the upper outer quadrant, 1 cm from the nipple, there is a cyst cont aining debris which was seen to be mobile. This measures 2.0 x 1.4 x 1.8 cm and is slightly larger w hen compared with the January exam. No suspicious features. Additional cyst with debris in the 8 o'cl ock position 3 cm from the nipple measuring 1.6 x 1.1 x 1.5 cm. Multiple other smaller cysts were no guero. Solid lesions: None seen. Ductal dilation: None. IMPRESSION: 1. No evidence of malignancy is noted. 2. Unless there is more urgent need, follow-up screening mammography is recommended, as per [place] [employer] guidelines. BI-RADS Category 2 - Benign Findings Breast Density - Category C - Heterogeneously dense Breast density category C or D implies that the patient has dense breast tissue. Dense breast tissue is very common and is not abnormal but dense breast tissue can make it harder to find cancer on a ma mmogram. Also, dense breast tissue may increase their breast cancer risk. This information about the result of the mammogram report was provided to the patient to raise their awareness. Use this report when you speak with the patient about their risks for breast cancer, which includes their family hist ory. At that time, you may recommend for more screening tests (Ultrasound or MRI) as they might be us eful based on their risk. A negative radiographic report should not delay biopsy if a dominant or clinically suspicious mass is present. Up to ten percent of cancers are not identified on mammography. A negative report may reinforce clinical impression. Adenosis and dense breasts may obscure an underlying neoplasm. False positive reports average 6 to 10%. Patient will receive a letter notifying them of these results.
== END 2024-09-29 02:06 ==
PROVIDERS: PCP Nurse Practitioner; Visit Provider Nurse Practitioner
DX: R92.8 Other abnormal and inconclusive findings on diagnostic imaging of breast (principal); Z12.31 Encounter for screening mammogram for malignant neoplasm of breast
CPT/HCPCS: 76642; 77061; 77065; G0279

== ENCOUNTER 2025-05-28 08:32 | Outpatient (CLI) | payer OTHER, SELFPAY ==
--- NOTE | 2025-05-28 06:30 | DI.MAMMO_ITS ---
Exam(s) MAMMO SCREENING EXAM: MAMMO SCREENING CLINICAL HISTORY: screening Z12.39. TECHNIQUE: Bilateral full field digital CC and MLO mammographic images were obtained with 3D tomosynthesis and utilizing computer aided detection (CAD). COMPARISON: Prior mammograms were reviewed. FINDINGS: Fibroglandular tissue pattern is again noted be moderately dense, this somewhat decreasing the sensitivity of the mammogram for finding hidden underlying lesions. There are no CAD designations today's mammogram. No new left breast findings. In the right breast on the MLO view there is a subtle round nodular density measuring approximately 13 x 13 mm and located 6 cm in from the nipple on the MLO view This is less easily discernible on the CC view although there does appear to be a smaller round nodule measuring 9 mm on the CC view located 5 cm in from the nipple. The previously present larger nodule on the right MLO view is less evident on the present mammogram. There are no malignant-appearing microcalcification groups in either breast. There is no significant architectural distortion nor skin thickening-retraction. IMPRESSION: 1. Dense bilateral fibroglandular tissue. No obvious radiographic evidence of malignancy in left breast. 2. Subtle right breast nodules as described above. Spot compression CC and MLO views as well as complete right breast ultrasound recommended. BI-RADS Category 0 - Incomplete: Need additional imaging evaluation Breast Density - Category C - The breast are heterogeneously dense, which may obscure small masses. Breast density Category C or D implies that the patient has dense breast tissue. Dense breast tissue can make it harder to find cancer on a mammogram. Dense breast tissue is also associated with an increased risk of breast cancer. This information about the result of the mammogram report was provided to the patient to raise their awareness. Use this report when you speak with the patient about their risks for breast cancer, which includes their family history. At that time, you may recommend additional screening tests (Ultrasound or MRI) as these tests may add significant information. A negative radiographic report should not delay biopsy if a dominant or clinically suspicious mass is present. Up to ten percent of cancers are not identified on mammography. A negative report may reinforce clinical impression. Adenosis and dense breasts may obscure an underlying neoplasm. False positive reports average 6 to 10%. Patient will receive a letter notifying them of these results.
== END 2025-05-28 08:52 ==
LOC: DI 08:33
PROVIDERS: PCP Nurse Practitioner; Visit Provider Family Medicine
DX: Z12.31 Encounter for screening mammogram for malignant neoplasm of breast (principal); R92.333 Mammographic heterogeneous density, bilateral breasts
CPT/HCPCS: 77063; 77067

== ENCOUNTER 2025-07-09 04:18 | Outpatient (CLI) | payer OTHER, SELFPAY ==
--- NOTE | 2025-07-09 | DI.MAMMO_ITS ---
Exam(s) MG MAMMO SCREEN CALL BACK UNI US BREAST RT COMPLETE EXAM: MG MAMMO SCREEN CALL BACK UNI RIGHT COMPLETE RIGHT BREAST ULTRASOUND CLINICAL HISTORY: SUBTLE RT BREAST NODULE R92.8 ABNL MAMMO. TECHNIQUE: Unilateral RIGHT BREAST spot mammographic images obtained with 3D tomosynthesisand utilizing computer aided detection (CAD). . Complete RIGHT breast Ultrasound was also performed, including all 4 quadrants, the retroareolar region, and the ipsilateral axilla. COMPARISON: Prior mammograms were reviewed. This additional imaging was performed due to findings described on the recent screening mammogram of 05/28/2025. MULTIPLE PRIOR ULTRASOUND EXAMINATIONS WERE REVIEWED.. Most recent breast ultrasound was September 2024 FINDINGS: DIAGNOSTIC MAMMOGRAM: Additional RIGHT BREAST mammographic views performed todayis equivocal. We proceeded with ultrasound COMPLETE RIGHT BREAST ULTRASOUND: Ultrasound performed today reveals a round 9 x 10 mm probable hemorrhagic microcyst at the 12 o'clock position. This was not previously present. At the 1 o'clock position there is a 13 by 6 mm cyst.. At the 2 o'clock position there is a smaller 6 mm microcyst. At the 4 o'clock position there is a 3 millimeter microcyst. At the 8 o'clock position there is a 14 x 12 mm finding which has the appearance of a probable hemorrhagic microcyst. Exhibits increased through transmission At the 10 o'clock position there is a 4 millimeter microcyst. At the 11 o'clock position there is an 8 x 4 mm finding which upon real-time imaging has more the appearance of probable part of her fibroglandular tissue than an actual nodule. Scanning of the ipsilateral axilla reveals no significant adenopathy. IMPRESSION: 1. Multiple right breast findings, many of which are simple cysts and microcysts. 2. However, there are findings at the 12 o'clock and 8 o'clock positions which are probably hemorrhagic microcysts, the largest measuring 14 x 12 mm. A slightly smaller simple cyst was noted at this location on the prior September 2024 study. Finding at the 11 o'clock position of the right breast is probably part of the fibroglandular tissue pattern. A finding previously present at the 7 o'clock position of the right breast is not evident on the present ultrasound study. Appropriate follow-up as discussed by myself with patient today is repeat complete right breast ultrasound in three-four months time with particular attention to the findings described above at the 12 o'clock, 8 o'clock, and 11 o'clock positions. The patient was informed of these findings and recommendations by myself prior to leaving the department today. BI-RADS Category 3 - 3 month - Probably Benign Finding: Recommend follow-up ULTRASOUND in 3 months Breast Density - Category C - The breast are heterogeneously dense, which may obscure small masses. Breast density Category C or D implies that the patient has dense breast tissue. Dense breast tissue can make it harder to find cancer on a mammogram. Dense breast tissue is also associated with an increased risk of breast cancer. This information about the result of the mammogram report was provided to the patient to raise their awareness. Use this report when you speak with the patient about their risks for breast cancer, which includes their family history. At that time, you may recommend additional screening tests (Ultrasound or MRI) as these tests may add significant information. A negative radiographic report should not delay biopsy if a dominant or clinically suspicious mass is present. Up to ten percent of cancers are not identified on mammography. A negative report may reinforce clinical impression. Adenosis and dense breasts may obscure an underlying neoplasm. False positive reports average 6 to 10%. Patient will receive a letter notifying them of these results.
== END 2025-07-09 04:38 ==
PROVIDERS: PCP Family Medicine; Visit Provider Family Medicine
DX: Z12.31 Encounter for screening mammogram for malignant neoplasm of breast (principal); R92.8 Other abnormal and inconclusive findings on diagnostic imaging of breast
CPT/HCPCS: 76642; 77063; 77067